=== PATIENT | female | born 1965 | race Caucasian/White ===

== ENCOUNTER 2017-05-08 09:28 | Emergency (ER) | payer SELFPAY ==
[~2017-05-08] VITALS: Ht 167.6 cm; Wt 64.3 kg
[~2017-05-08 09:28] MED LIST: CLINDAMYCIN HC300 MG PO; INVEGA6 MG PO; TRAMADOL HCL50 MG PO
[2017-05-08] MEDS ORDERED: POLYMYXIN B-TMP10 ML BOTH EYES (10:55)
[2017-05-08 11:20] VITALS: BP 137/97
== END 2017-05-08 11:21 | disposition home or self-care (01) ==
LOC: EME 09:28
DX: H10.9 Unspecified conjunctivitis (principal); F17.200 Nicotine dependence, unspecified, uncomplicated
CPT/HCPCS: 99281; 99283

== ENCOUNTER 2017-08-04 12:10 | Emergency (ER) | payer SELFPAY ==
[~2017-08-04] VITALS: Ht 167.6 cm; Wt 65.5 kg
[~2017-08-04 12:10] MED LIST changes: +POLYMYXIN B-TMP10 ML BOTH EYES
[2017-08-04] MEDS ORDERED: KEFLEX500 MG PO (13:54)
[2017-08-04] MEDS ORDERED: MOTRIN800 MG PO (13:54)
[2017-08-04 14:19] VITALS: BP 127/66
== END 2017-08-04 14:20 | disposition home or self-care (01) ==
LOC: EME 12:10
DX: S00.86XA Insect bite (nonvenomous) of other part of head, initial encounter (principal); L03.211 Cellulitis of face; W57.XXXA Bitten or stung by nonvenomous insect and other nonvenomous arthropods, initial encounter; F17.200 Nicotine dependence, unspecified, uncomplicated
CPT/HCPCS: 99281; 99282